=== PATIENT | female | born 1950 | race African-American/Black ===

== ENCOUNTER 2022-07-10 14:24 | Emergency (ER) | payer OTHER, MEDICAID ==
[~2022-07-10] VITALS: Ht 165.1 cm; Wt 75.0 kg
[~2022-07-10 14:24] MED LIST: FLUO15CR46; LEVO75TA
[2022-07-10] MEDS ORDERED: IBUPROFEN 400MG TABLET PO ONE (16:45)
[2022-07-10] MEDS ORDERED: LIDOCAINE 5% PATCH TOP SCH (16:45)
[2022-07-10 20:42] VITALS: BP 103/62
[2022-07-10] MEDS ORDERED: KETOROLAC 60MG/2ML VIAL IM ONE (20:45)
[2022-07-10 20:47] LABS: BASOPHILS % 1.1 % (0.0-2.0); EOSINOPHILS % 4.9 % (0.0-5.0); HEMATOCRIT. 33.9 % (36.0-48.0); HEMOGLOBIN. 10.7 g/dL (12.0-16.0); MEAN CORPUSCULAR HEMOGLOBIN 23.8 pg (28.0-32.0); MEAN CORPUSCULAR VOLUME 75.3 fL (81.0-99.0); MEAN PLATELET VOLUME 9.1 fl (7.4-10.4); MONOCYTES % 8.9 % (2.0-8.0); NEUTROPHILS % 63.1 % (40.0-76.0); PLATELET 234 x1000/uL (130-400)
[2022-07-10 20:56] LABS: CHLORIDE 111 mEq/L (98-107)
[2022-07-10 21:08] LABS: PLATELET ESTIMATE NORMAL
== END 2022-07-10 21:53 | disposition left against medical advice (07) ==
LOC: ER 14:24
DX: R07.81 Pleurodynia (principal); R10.9 Unspecified abdominal pain; J98.11 Atelectasis; I10 Essential (primary) hypertension; E11.9 Type 2 diabetes mellitus without complications; Z79.899 Other long term (current) drug therapy
CPT/HCPCS: 36415; 71101; 74176; 80053; 84484; 85025; 99285